=== PATIENT | male | born 1990 | race African-American/Black ===

== ENCOUNTER 2023-09-19 11:25 | Emergency (ER) | payer OTHER ==
[~2023-09-19] VITALS: Ht 188 cm; Wt 88.5 kg
[2023-09-19 11:33] VITALS: BP 124/67; TEMP 98; O2SAT 97
[2023-09-19] MEDS ORDERED: IBUP-1955 PO (12:15)
[2023-09-19] MEDS ORDERED: AMOX-430 PO (12:15)
== END 2023-09-19 12:21 | disposition home or self-care (01) ==
LOC: ER 11:39
DX: J06.9 Acute upper respiratory infection, unspecified (principal); J02.9 Acute pharyngitis, unspecified; R05.9 Cough, unspecified; R09.81 Nasal congestion; Z60.2 Problems related to living alone

== ENCOUNTER 2023-10-04 13:36 | Emergency (ER) | payer OTHER ==
[~2023-10-04] VITALS: Ht 188 cm; Wt 90.7 kg
[~2023-10-04 13:36] MED LIST: AMOX-430 PO; IBUP-1955 PO
[2023-10-04 13:48] VITALS: BP 124/65; TEMP 97.5; O2SAT 98
[2023-10-04] MEDS ORDERED: FLUT16SP BNOSTRILS (14:39)
[2023-10-04] MEDS ORDERED: OMEP20TA5 PO (14:39)
[2023-10-04] MEDS ORDERED: FAMOTIDINE (20 MG) 20 MG TABLET ONE (14:42)
[2023-10-04] MEDS ORDERED: FAMOTIDINE (20 MG) 20 MG TABLET PO ONE (15:00)
== END 2023-10-04 14:49 | disposition home or self-care (01) ==
LOC: ER 13:45
DX: K21.9 Gastro-esophageal reflux disease without esophagitis (principal); J34.3 Hypertrophy of nasal turbinates; Z60.2 Problems related to living alone